=== PATIENT | male | born 1960 | race Two or more races ===

== ENCOUNTER 2024-04-04 12:11 | Inpatient (IN) | payer OTHER ==
[~2024-04-04] VITALS: Ht 172.7 cm; Wt 81.6 kg
--- NOTE | 2024-04-04 12:38 | NUR ---
SE RECIBE PTE ALERTA ORIENTADO X3.EN AMBULANCIA EN COMPANIA DE PARAMEDICOS Y FAMILIAR CONECTADO A MONITOR CARDIACO Y NRM 100%.PTE REFIERE RHINA PRESENTADO DIFICULTAD RESPIRATORIO.SE DIONE EKG Y SE PRESENTA A .
[2024-04-04] MEDS ORDERED: KETOROLAC TROMETHAMINE 60 MG VIAL IM STA (14:32)
[2024-04-04] MEDS ORDERED: cloNIDine HCL 0.2 MG TABLET PO STA (14:33)
--- NOTE | 2024-04-04 14:53 | NUR ---
SE RECIBE PTE ALERTA ORIENTADO X3.SE JUDY MUESTRAS DE LABORATORIO USANDO MEDIDAS ASEPTICAS.SE ADMINISTRAN MEDICAMENTOS VICKI ORDEN MEDICA.ORIENTA PTE SOBRE OBJETIVO DE [place] MEDICO.PTE MANEJADO POR ELIEZER LEWIS.
[2024-04-04 15:18] LABS: HEMATOCRIT 39.3 % (39.0-48.0); HEMOGLOBIN 13.2 g/dL (13-16.00); MEAN CELL VOLUME 90.6 fL (80.0-100.00); MEAN CORPUSCULAR HEMOGLOBIN 30.5 pg (27.00-32.0); MEAN CORPUSCULAR HGB CONC 33.7 g/dl (32.0-36.0); PLATELET COUNT 313 K/uL (150-450); RED BLOOD COUNT 4.33 M/uL (4.00-6.00); RED CELL DISTRIBUTION WIDTH 13.3 % (11.5-14.5)
[2024-04-04 15:31] LABS: CALCIUM 8.6 mg/dL (8.5-10.1); CREATININE SERUM 0.74 mg/dL (0.70-1.30); GFR 106.48; POTASSIUM 3.27 mEq/L (3.5-5.1)
--- NOTE | 2024-04-04 15:46 | NUR ---
SE RECIBE PACIENTE DE TURNO ANTERIOR ALERTA Y ORIENTADO EN SHAWN JENNYFER ESFERAS; UBICADO EN YANELY CON BARANDAS ELEVADAS. CONECTADO A MONITOR CARDIACO Y OXIEMTRIA DE PULSO. SE OBSERVA CON NON REBREATHER LA CUAL TOLERA, SPO2 100%. CANALIZACION PATENTE,ARNOLD DE EDEMA O ERITEMA. PENDIENTE X RAY.
[2024-04-04 18:27] LABS: PH,URINE 5.5 (5.0-8.0); URINE APPEARANCE Clear; URINE BILIRRUBIN Negative (NEGATIVE); URINE BLOOD Moderate; URINE COLOR Yellow; URINE GLUCOSE Negative (NEGATIVE); URINE KETONE Negative (NEGATIVE); URINE LEUKOCYTE Trace; URINE NITRATE Negative; URINE PROTEIN 30 (NEGATIVE); URINE UROBILINOGEN 0.2 E.U./dl
[2024-04-04 18:31] LABS: URINE BACTERIA 25.1 uL (0.0-1933); URINE CAST 1.52 uL (0.0-1.40); URINE EPITHELIAL CELLS 13.5 uL (0.0-38.8); URINE RBC 16.3 uL (0.0-20.8); URINE WBC 34.1 uL (0.0-23.2)
[2024-04-04 19:15] LABS: URINE CRYSTALS FEW /HPF; URINE MUCUS SCANT
[2024-04-04 20:53] LABS: D DIMER 0.6 MG/L; INR 1.15; PARTIAL THROMBOPLASTIN TIME 29.3 SECONDS (22.0-34.0); PROTHROMBIN TIME 12.4 SECONDS (9.0-11.5)
[2024-04-04] MEDS ORDERED: ENOXAPARIN SODIUM 40 MG/0.4 ML SYRINGE SUBCUTANEO SCH (22:30)
[2024-04-04] MEDS ORDERED: FUROsemide 20 MG/2 ML VIAL IV SCH (22:30)
[2024-04-04] MEDS ORDERED: NITROGLYCERIN IN 5 % DEXTROSE 250 ML IV SCH (22:33)
[2024-04-04] MEDS ORDERED: POTASSIUM CHLORIDE 20MEQ/100ML H2O PB IV ONE (22:45)
[2024-04-04] MEDS ORDERED: ONDANSETRON HCL 4 MG in 0.9 % SODIUM CHLORIDE 50 ML IV PRN (22:45)
[2024-04-04] MEDS ORDERED: ACETAMINOPHEN 325 MG TABLET PO ONE (23:45)
[2024-04-04 23:57] LABS: ABG PH 7.388 (7.35-7.45); ABG PO2 120.2 mmHg (80-100); ABG pCO2 50.3 mmHg (35-45); SaO2 98.6 %
[2024-04-04 23:58] LABS: BASE EXCESS 3.5 mmol/l; BICARBONATE 29.6 mmol/l (23-25); Tco2 31.2 mmol/l; allen test SATISFACTORY; o2 100 %; puncture site RADIAL RIGHT
[2024-04-05 08:36] VITALS: BP 176/95; O2SAT 96
[2024-04-05] MEDS ORDERED: ENOXAPARIN SODIUM 80 MG/0.8 ML SYRINGE SUBCUTANEO SCH (09:00)
== END 2024-04-05 12:00 | disposition left against medical advice (07) | DRG 282 ==
LOC: ER 12:11 → SEC-K 22:32
PROVIDERS: General Practice; ADMIT Internal Medicine; ATTEND Internal Medicine
PROC: 4A033R1 Measurement of Arterial Saturation, Peripheral, Percutaneous Approach (ICD-10-PCS; principal; 2024-04-04)
DX: I21.3 ST elevation (STEMI) myocardial infarction of unspecified site (principal); Z53.29 Procedure and treatment not carried out because of patient's decision for other reasons; Z20.822 Contact with and (suspected) exposure to COVID-19

== ENCOUNTER 2024-04-05 14:10 | Inpatient (IN) | payer OTHER ==
[~2024-04-05] VITALS: Ht 152.4 cm; Wt 59.0 kg
[2024-04-05] MEDS ORDERED: NITROGLYCERIN IN 5 % DEXTROSE 50 MG/250 ML BOTTLE IV STA (15:23)
[2024-04-05] MEDS ORDERED: LORazepam 2 MG/ML VIAL IM STA (15:23)
[2024-04-05 16:50] LABS: ALBUMIN 3.2 gm/dL (3.4-5.0); BILIRUBIN TOTAL 0.92 mg/dL (0.3-1.2); BILIRUBIN,CONJUGATED 0.24 mg/dL (0.0-0.2); BILIRUBIN,UNCONJUGATED 0.68 mg/dL (0.0-0.6); CALCIUM 8.6 mg/dL (8.5-10.1); CREATININE SERUM 0.71 mg/dL (0.70-1.30); GFR 111.69; POTASSIUM 3.43 mEq/L (3.5-5.1)
[2024-04-05 17:08] LABS: URINE APPEARANCE Clear; URINE BILIRRUBIN Negative (NEGATIVE); URINE BLOOD Moderate; URINE COLOR Yellow; URINE GLUCOSE Negative (NEGATIVE); URINE KETONE Trace (NEGATIVE); URINE LEUKOCYTE Small; URINE NITRATE Negative; URINE PROTEIN 30 (NEGATIVE); URINE UROBILINOGEN 0.2 E.U./dl
[2024-04-05 17:12] LABS: URINE BACTERIA 35.2 uL (0.0-1933); URINE EPITHELIAL CELLS 10.6 uL (0.0-38.8); URINE WBC 59.3 uL (0.0-23.2)
[2024-04-05 17:12] LABS: HEMATOCRIT 40.4 % (39.0-48.0); HEMOGLOBIN 13.9 g/dL (13-16.00); MEAN CORPUSCULAR HEMOGLOBIN 30.9 pg (27.00-32.0); MEAN CORPUSCULAR HGB CONC 34.4 g/dl (32.0-36.0); PLATELET COUNT 296 K/uL (150-450); RED BLOOD COUNT 4.49 M/uL (4.00-6.00); RED CELL DISTRIBUTION WIDTH 13.4 % (11.5-14.5)
[2024-04-05 17:22] LABS: URINE CAST 0.61 uL (0.0-1.40)
[2024-04-05] MEDS ORDERED: NICOTINE 21MG/24HR PATCH.TD24 TD SCH (18:39)
[2024-04-05] MEDS ORDERED: ATORVASTATIN CALCIUM 40 MG TABLET PO SCH (18:40)
[2024-04-05] MEDS ORDERED: ENOXAPARIN SODIUM 60 MG/0.6 ML SYRINGE SUBCUTANEO SCH (18:40)
[2024-04-05] MEDS ORDERED: ACETAMINOPHEN 500 MG GEL..CAP PO PRN (18:45)
[2024-04-05] MEDS ORDERED: LORazepam 1 MG TABLET PO PRN (18:45)
[2024-04-05] MEDS ORDERED: AMIODARONE HCL 50 MG/ML AMPUL IV ONE (18:45)
[2024-04-05] MEDS ORDERED: THIAMINE HCL 100 MG/ML 2 ML VIAL IV ONE (18:45)
[2024-04-05] MEDS ORDERED: POTASSIUM CHLORIDE 20MEQ/100ML H2O PB IV ONE (19:00)
[2024-04-05] MEDS ORDERED: FUROsemide 20 MG/2 ML VIAL IV SCH (21:00)
[2024-04-05] MEDS ORDERED: CHLORDIAZEPOXIDE HCL 25 MG CAPSULE PO SCH (21:00)
[2024-04-05 21:27] LABS: D DIMER 0.99 MG/L; PARTIAL THROMBOPLASTIN TIME 23.2 SECONDS (22.0-34.0)
[2024-04-05 21:33] LABS: INR 1.16; PROTHROMBIN TIME 12.5 SECONDS (9.0-11.5)
[2024-04-05 22:17] LABS: ABG PH 7.345 (7.35-7.45); ABG PO2 51.9 mmHg (80-100); ABG pCO2 59.5 mmHg (35-45); BASE EXCESS 4.2 mmol/l; BICARBONATE 31.7 mmol/l (23-25); SaO2 84.7 %; Tco2 33.6 mmol/l; allen test SATISFACTORY; o2 32 %; puncture site RADIAL LEFT
[2024-04-06] VITALS (8 sets, daily range): BP systolic 107–160; BP diastolic 75–115; O2SAT 95–100
[2024-04-06] MEDS ORDERED: FUROsemide 40 MG/4 ML VIAL IV STA (06:49)
[2024-04-06 07:21] LABS: MAGNESIUM 2.1 mg/dL (1.8-2.4); PHOSPHOROUS 6.2 mg/dL (2.5-4.9); TSH 0.412 uIU/mL (0.358-3.74)
[2024-04-06] MEDS ORDERED: THIAMINE HCL 100 MG TABLET PO SCH (09:00)
[2024-04-06] MEDS ORDERED: FAMOTIDINE/PF 20 MG in 0.9 % SODIUM CHLORIDE 8 ML IV PUSH SCH (09:00)
[2024-04-06 12:03] LABS: ABG PH 7.326 (7.35-7.45); ABG PO2 202.8 mmHg (80-100); ABG pCO2 53.3 mmHg (35-45); BASE EXCESS 0.2 mmol/l; BICARBONATE 27.2 mmol/l (23-25); SaO2 99.6 %; Tco2 28.8 mmol/l
[2024-04-06 12:04] LABS: allen test SATISFACTORY; o2 100 %; puncture site RADIAL LEFT
[2024-04-06] MEDS ORDERED: NOREPINEPHRINE BITARTRATE 1 MG/ML AMPUL IV STA (13:10)
[2024-04-06] MEDS ORDERED: NOREPINEPHRINE BITARTRATE 1 MG/ML AMPUL IV SCH (13:15)
[2024-04-06] MEDS ORDERED: NOREPINEPHRINE BITARTRATE 8 MG in DEXTROSE 5 % IN WATER 250 ML IV SCH ×2 (13:45→14:00)
[2024-04-06] MEDS ORDERED: MIDAZOLAM HCL 50 MG in 0.9 % SODIUM CHLORIDE 50 ML IV SCH (14:00)
[2024-04-06 14:58] LABS: COCAINE NEGATIVE (NEGATIVE); METHADONE NEGATIVE (NEGATIVE); OPIATES NEGATIVE (NEGATIVE); THC ( Cannabinoids) NEGATIVE (NEGATIVE)
[2024-04-07] VITALS (12 sets, daily range): BP systolic 86–143; BP diastolic 58–99; O2SAT 96–100
[2024-04-07 07:12] LABS: ALBUMIN 2.8 gm/dL (3.4-5.0); BILIRUBIN TOTAL 1.38 mg/dL (0.3-1.2); CALCIUM 7.8 mg/dL (8.5-10.1); CREATININE SERUM 1.23 mg/dL (0.70-1.30); GFR 59.24; GLOBULINA 2.9 G/DL (2.4-3.5); POTASSIUM 3.38 mEq/L (3.5-5.1); TOTAL PROTEIN 5.7 gm/dL (6.4-8.2)
[2024-04-07] MEDS ORDERED: NICOTINE 21MG/24HR PATCH.TD24 TD SCH (09:00)
[2024-04-07] MEDS ORDERED: PIPERACILLIN/TAZOBACTAM SODIUM 3.375 GM VIAL IV SCH (09:00)
[2024-04-07] MEDS ORDERED: THIAMINE HCL 100 MG/ML 2 ML VIAL IV SCH (09:00)
[2024-04-07] MEDS ORDERED: POTASSIUM CHLORIDE IN WATER 100 ML IV NR (10:30)
[2024-04-07 12:00] LABS: ABG PH 7.465 (7.35-7.45); ABG PO2 186.5 mmHg (80-100); ABG pCO2 43.7 mmHg (35-45); BASE EXCESS 6.2 mmol/l; BICARBONATE 30.8 mmol/l (23-25); SaO2 99.7 %; Tco2 32.1 mmol/l; allen test SATISFACTORY; o2 50 %; puncture site RADIAL LEFT
[2024-04-07] MEDS ORDERED: POLYVINYL ALCOHOL 15 ML DROPS OP SCH (13:00)
[2024-04-07] MEDS ORDERED: CHLORHEXIDINE GLUCONATE 15ML BRUSH KIT MM SCH (13:00)
[2024-04-07] MEDS ORDERED: MIDAZOLAM HCL 100 MG in 0.9 % SODIUM CHLORIDE 100 ML IV SCH (21:00)
[2024-04-08] VITALS (15 sets, daily range): BP systolic 70–169; BP diastolic 45–118; O2SAT 97–100
[2024-04-08 08:44] LABS: ALBUMIN 2.9 gm/dL (3.4-5.0); BILIRUBIN TOTAL 1.83 mg/dL (0.3-1.2); CALCIUM 8.4 mg/dL (8.5-10.1); CREATININE SERUM 1.12 mg/dL (0.70-1.30); GLOBULINA 3.3 G/DL (2.4-3.5); POTASSIUM 3.17 mEq/L (3.5-5.1); TOTAL PROTEIN 6.2 gm/dL (6.4-8.2)
[2024-04-08 08:52] LABS: HEMATOCRIT 43.5 % (39.0-48.0); HEMOGLOBIN 14.2 g/dL (13-16.00); MEAN CELL VOLUME 93.2 fL (80.0-100.00); MEAN CORPUSCULAR HEMOGLOBIN 30.5 pg (27.00-32.0); MEAN CORPUSCULAR HGB CONC 32.7 g/dl (32.0-36.0); PLATELET COUNT 226 K/uL (150-450); RED BLOOD COUNT 4.66 M/uL (4.00-6.00); RED CELL DISTRIBUTION WIDTH 13.5 % (11.5-14.5)
[2024-04-08] MEDS ORDERED: ENALAPRILAT DIHYDRATE 1.25 MG/ML VIAL IV PRN (10:00)
[2024-04-08 11:22] LABS: ABG PH 7.463 (7.35-7.45); ABG PO2 164.5 mmHg (80-100); BASE EXCESS 9.5 mmol/l; SaO2 99.6 %; Tco2 36.5 mmol/l
[2024-04-08 11:23] LABS: allen test SATISFACTORY; o2 70 %; puncture site RADIAL RIGHT
[2024-04-08] MEDS ORDERED: SODIUM CHLORIDE 0.9% IV SCH (14:00)
[2024-04-08] MEDS ORDERED: MIDAZOLAM HCL IV SCH (14:00)
[2024-04-09] VITALS (13 sets, daily range): BP systolic 98–165; BP diastolic 58–95; O2SAT 96–100
[2024-04-09] MEDS ORDERED: PIPERACILLIN/TAZOBACTAM SODIUM 3.375 GM VIAL IV SCH
[2024-04-09] MEDS ORDERED: CIPROFLOXACIN IN 5 % DEXTROSE 200 ML IV SCH (01:00)
[2024-04-09 10:17] LABS: ABG PH 7.479 (7.35-7.45); ABG PO2 92.4 mmHg (80-100); ABG pCO2 51.4 mmHg (35-45); BASE EXCESS 11.7 mmol/l; BICARBONATE 37.3 mmol/l (23-25); Tco2 38.9 mmol/l
[2024-04-09 10:18] LABS: allen test SATISFACTORY; o2 40 %; puncture site RADIAL RIGHT
[2024-04-09] MEDS ORDERED: LINEZOLID IN DEXTROSE 5% 600 MG/300 ML PIGGYBAG IV NR (11:00)
[2024-04-09] MEDS ORDERED: PIPERACILLIN/TAZOBACTAM SODIUM 4.5 GM VIAL IV SCH (12:00)
[2024-04-09] MEDS ORDERED: LINEZOLID IN DEXTROSE 5% 300 ML IV SCH (21:00)
[2024-04-10] VITALS (9 sets, daily range): BP systolic 112–152; BP diastolic 72–98; O2SAT 95–100
[2024-04-10 13:08] LABS: ABG PH 7.438 (7.35-7.45); ABG PO2 117.3 mmHg (80-100); ABG pCO2 57.1 mmHg (35-45); BASE EXCESS 11.1 mmol/l; BICARBONATE 37.7 mmol/l (23-25); SaO2 98.8 %; Tco2 39.5 mmol/l
[2024-04-10 13:09] LABS: allen test SATISFACTORY; o2 40 %; puncture site RADIAL RIGHT
[2024-04-10 13:21] LABS: ABG PH 7.511 (7.35-7.45); ABG PO2 101.3 mmHg (80-100); ABG pCO2 47.2 mmHg (35-45); BASE EXCESS 12.2 mmol/l; BICARBONATE 36.9 mmol/l (23-25); SaO2 98.6 %; Tco2 38.4 mmol/l; allen test SATISFACTORY; o2 50 %; puncture site RADIAL RIGHT
[2024-04-10] MEDS ORDERED: IPRATROPIUM/ALBUTEROL SULFATE 3 ML AMPUL.NEB IH SCH (13:28)
[2024-04-10] MEDS ORDERED: PROPOFOL 100 ML IV SCH ×2 (14:15)
[2024-04-11] VITALS (17 sets, daily range): BP systolic 97–148; BP diastolic 62–100; O2SAT 95–100
[2024-04-11 07:21] LABS: HEMATOCRIT 45.5 % (39.0-48.0); HEMOGLOBIN 14.5 g/dL (13-16.00); MEAN CELL VOLUME 93.6 fL (80.0-100.00); MEAN CORPUSCULAR HEMOGLOBIN 29.8 pg (27.00-32.0); MEAN CORPUSCULAR HGB CONC 31.8 g/dl (32.0-36.0); PLATELET COUNT 232 K/uL (150-450); RED BLOOD COUNT 4.86 M/uL (4.00-6.00); RED CELL DISTRIBUTION WIDTH 14.3 % (11.5-14.5)
[2024-04-11 07:46] LABS: CALCIUM 7.4 mg/dL (8.5-10.1); CREATININE SERUM 3.37 mg/dL (0.70-1.30); GFR 18.51
[2024-04-11 08:04] LABS: POTASSIUM 2.82 mEq/L (3.5-5.1)
[2024-04-11] MEDS ORDERED: FUROsemide 20 MG/2 ML VIAL IV SCH (09:00)
[2024-04-11] MEDS ORDERED: METHYLPREDNISOLONE SOD SUCC 40 MG VIAL IV SCH (09:00)
[2024-04-11] MEDS ORDERED: IPRATROPIUM BROMIDE 0.5 MG/2.5 ML AMPUL.NEB IH SCH (09:00)
[2024-04-11] MEDS ORDERED: DEXTROSE 5 % IN WATER 1,000 ML IV SCH (09:15)
[2024-04-11] MEDS ORDERED: POTASSIUM CHLORIDE/D5-0.45NACL 40 MEQ/1,000 ML PIGGYBAG IV SCH (09:16)
[2024-04-11] MEDS ORDERED: POTASSIUM CHLORIDE IN WATER 100 ML IV SCH ×2 (10:15→21:00)
[2024-04-11] MEDS ORDERED: hydrALAZINE HCL 20 MG VIAL IV PRN (10:30)
[2024-04-11 12:00] LABS: ABG PO2 102.7 mmHg (80-100); ABG pCO2 45.1 mmHg (35-45); BASE EXCESS 8.2 mmol/l; BICARBONATE 32.8 mmol/l (23-25); SaO2 98.5 %; Tco2 34.2 mmol/l; allen test SATISFACTORY; o2 40 %; puncture site RADIAL RIGHT
[2024-04-11] MEDS ORDERED: PROPOFOL 10,000 MCG/ML VIAL IV SCH (16:15)
[2024-04-11] MEDS ORDERED: PROPOFOL 100 ML IV SCH (16:30)
[2024-04-11] MEDS ORDERED: hydrALAZINE HCL 25 MG TABLET PO SCH (21:00)
[2024-04-12] VITALS (14 sets, daily range): BP systolic 73–127; BP diastolic 46–93; O2SAT 94–100
[2024-04-12 07:06] LABS: CALCIUM 7.4 mg/dL (8.5-10.1); POTASSIUM 3.45 mEq/L (3.5-5.1)
[2024-04-12 07:18] LABS: GFR 9.57
[2024-04-12 07:20] LABS: CREATININE SERUM 5.97 mg/dL (0.70-1.30)
[2024-04-12] MEDS ORDERED: SODIUM CHLORIDE 0.45 % 1,000 ML IV SCH (08:15)
[2024-04-12] MEDS ORDERED: ENOXAPARIN SODIUM 60 MG/0.6 ML SYRINGE SUBCUTANEO SCH (09:00)
[2024-04-12] MEDS ORDERED: PIPERACILLIN/TAZOBACTAM SODIUM 3.375 GM in DEXTROSE 5 % IN WATER 100 ML IV SCH (09:00)
[2024-04-12 10:41] LABS: ABG PH 7.458 (7.35-7.45); ABG PO2 90.9 mmHg (80-100); ABG pCO2 41.8 mmHg (35-45); BASE EXCESS 4.6 mmol/l; BICARBONATE 28.9 mmol/l (23-25); SaO2 97.6 %; Tco2 30.2 mmol/l
[2024-04-12 10:42] LABS: allen test SATISFACTORY; o2 40 %; puncture site RADIAL RIGHT
[2024-04-12] MEDS ORDERED: METOPROLOL TARTRATE 25 MG TABLET PO NR (11:00)
[2024-04-12] MEDS ORDERED: NOREPINEPHRINE BITARTRATE 4 MG in DEXTROSE 5 % IN WATER 250 ML IV SCH (23:00)
[2024-04-13] VITALS (7 sets, daily range): BP systolic 85–133; BP diastolic 44–102; O2SAT 90–99
[2024-04-13 08:21] LABS: ALBUMIN 1.7 gm/dL (3.4-5.0); BILIRUBIN TOTAL 0.86 mg/dL (0.3-1.2); CALCIUM 6.6 mg/dL (8.5-10.1); GLOBULINA 3.9 G/DL (2.4-3.5); POTASSIUM 4.93 mEq/L (3.5-5.1); TOTAL PROTEIN 5.6 gm/dL (6.4-8.2)
[2024-04-13 08:26] LABS: GFR 7.35
[2024-04-13 08:28] LABS: CREATININE SERUM 7.5 mg/dL (0.70-1.30)
[2024-04-13] MEDS ORDERED: hydrALAZINE HCL 25 MG TABLET PO SCH (09:00)
[2024-04-13] MEDS ORDERED: METOPROLOL TARTRATE 25 MG TABLET PO SCH (09:00)
[2024-04-13 10:07] LABS: hav igm Negative (Negative); hcv Non Reactive (Non Reactive); hep b c Negative (Negative); hep b s ag Negative (Negative)
== END 2024-04-13 06:40 | disposition expired ==
LOC: ER 14:10 → ICU-2 19:29 → ICU 19:29
PROVIDERS: General Practice; Internal Medicine; Internal Medicine Infectious Disease; Student in an Organized Health Care Education/Training Program; ADMIT Internal Medicine; ATTEND Internal Medicine
PROC: B246ZZZ Ultrasonography of Right and Left Heart (ICD-10-PCS; principal; 2024-04-05)
PROC: 5A1945Z Respiratory Ventilation, 24-96 Consecutive Hours (ICD-10-PCS; 2024-04-06)
PROC: 0BH18EZ Insertion of Endotracheal Airway into Trachea, Via Natural or Artificial Opening Endoscopic (ICD-10-PCS; 2024-04-06)
DX: I21.4 Non-ST elevation (NSTEMI) myocardial infarction (principal); J15.1 Pneumonia due to Pseudomonas; J18.9 Pneumonia, unspecified organism; J69.0 Pneumonitis due to inhalation of food and vomit; R65.21 Severe sepsis with septic shock; I43 Cardiomyopathy in diseases classified elsewhere; I48.20 Chronic atrial fibrillation, unspecified; N17.8 Other acute kidney failure; I46.9 Cardiac arrest, cause unspecified; I11.9 Hypertensive heart disease without heart failure; F14.929 Cocaine use, unspecified with intoxication, unspecified; F10.10 Alcohol abuse, uncomplicated; R00.0 Tachycardia, unspecified; I11.0 Hypertensive heart disease with heart failure; B96.5 Pseudomonas (aeruginosa) (mallei) (pseudomallei) as the cause of diseases classified elsewhere; F17.200 Nicotine dependence, unspecified, uncomplicated; I50.89 Other heart failure; I95.89 Other hypotension